=== PATIENT | male | born 1945 | race Hispanic/Latino ===

== ENCOUNTER 2018-10-22 08:19 | Day surgery (SDC) | payer OTHER ==
[2018-10-20 15:20] VITALS: BP 163/86
[2018-10-20 15:32] LABS: BASOPHILS % (AUTO) 0.9 % (0.0-5.0); EOSINOPHILS % (AUTO) 3.3 % (0.0-8.0); HEMATOCRIT 49.7 % (42-54); LYMPHOCYTES % (AUTO) 29.2 % (21.0-51.0); MEAN CORPUSCULAR HEMOGLOBIN 28.1 pg (27.0-33.0); MEAN CORPUSCULAR HGB CONC 33.8 g/dL (32.0-36.0); MEAN CORPUSCULAR VOLUME 83.2 fL (79-99); MONOCYTES % (AUTO) 10.7 % (3.0-13.0); NEUTROPHILS % (AUTO) 55.9 % (40.0-77.0); PLATELET COUNT (AUTO) 330 K/uL (130-400); RED BLOOD CELL COUNT(AUTO) 5.97 MIL/uL (4.50-6.20); RED CELL DISTRIBUTION WIDTH 13.9 % (11.0-15.5); WHITE BLOOD COUNT (AUTO) 9.5 K/uL (4.8-10.8)
[2018-10-20 15:50] LABS: INR 0.99 (0.85-1.15); PARTIAL THROMBOPLASTIN TIME 30.7 SEC (26.3-35.5); PROTHROMBIN TIME 10.4 SEC (9.6-11.6)
[2018-10-20 15:59] LABS: CREATININE 0.9 mg/dL (0.5-1.5)
[2018-10-20 17:19] LABS: BILIRUBIN,URINE NEGATIVE (NEGATIVE); COLOR,URINE YELLOW (YELLOW); GLUCOSE, URINE (UA) NEGATIVE (NEGATIVE); KETONES,URINE NEGATIVE (NEGATIVE); LEUKOCYTE ESTERASE ,URINE MODERATE (NEGATIVE); NITRATE,URINE POSITIVE (NEGATIVE); OCCULT BLOOD,URINE MODERATE (NEGATIVE); PH,URINE 5.5 (5.0-8.0); PROTEIN,URINE NEGATIVE (NEGATIVE); UROBILINOGEN,URINE 0.2 mg/dL (0.2-1.0)
[2018-10-20 17:20] LABS: APPEARANCE,URINE CLOUDY (CLEAR); RBC,URINE None Seen /HPF (0-1)
[2018-10-20 17:21] LABS: BACTERIA,URINE Moderate /HPF (None Seen); SQUAMOUS EPITHELIAL CELL,UR None Seen /HPF (0-2); WBC,URINE >100 /HPF (0-1)
--- NOTE | 2018-10-21 10:25 | NUR ---
UA REPORTED AND FAXED ABNORMAL UA TO DR. VIRGEN LEUNG. SHE WILL INFORM HIM.
--- NOTE | 2018-10-21 11:25 | NUR ---
UA PER DR. NEW NO ORDERS RECEIVED. PROCEED WITH PLANNED PROCEDURE.
[~2018-10-22] VITALS: Ht 177.8 cm; Wt 109.6 kg
[2018-10-22] VITALS (9 sets, daily range): BP systolic 134–167; BP diastolic 72–94
[~2018-10-22 08:19] MED LIST: ALFU10TA18 PO; CEPH500C2 PO; FINA5TAB41 PO; LOSA50TA64 PO; METO-391 PO; PHARMACY COMMUNICATION MISC SCH; ROSU20TA30 PO; SODIUM CHLORIDE 0.9% 500ML 500 ML IV SCH
[2018-10-22] MEDS ORDERED: SODIUM CHLORIDE 0.9% 1000ML 1,000 ML IV ONE (08:56)
[2018-10-22] MEDS ORDERED: IOHEXOL-350 50ML VIAL IV ONE (09:59)
[2018-10-22] MEDS ORDERED: IOHEXOL-350 75 ML VIAL IV ONE (09:59)
[2018-10-22] MEDS ORDERED: LIDOCAINE HCL 2% 20ML ONE (09:59)
[2018-10-22] MEDS ORDERED: HYDRALAZINE HCL 20 MG/ML VIAL ONE (10:31)
--- NOTE | 2018-10-22 14:00 | NUR ---
REPORT RECEIVED FROM SHERRILL PATEL, CARE RENDERED OVER. PT READY FOR DISCHARGED, JUST WAITING FOR APPOINTMENT.
--- NOTE | 2018-10-22 14:30 | NUR ---
PT DISCHARGED HOME, TOLERATING FLUIDS WELL, AMBULATING WELL. DENIES ANY SEVERE PAIN, NAUSEA OR DIZZINESS. DRESSING TO RIGHT GROIN REMAINS SOFT, DRY, CLEAN AND INTACT. PT SWITCHED TO LEG BAG PRIOR TO LEAVING, VOIDING WELL, CLEAR YELLOW URINE. REPORTED TO PT THAT WE WOULD CALL HIM WITH DATE OF SURGERY.
--- NOTE | 2018-10-22 17:15 | NUR ---
PT CALLED AND NOTIFIED OF DATE OF SURGERY AND PRE-OP APPOINTMENT EXPLAINED IN THE DISCHARGE INSTRUCTIONS.
== END 2018-10-22 14:30 | disposition home or self-care (01) ==
LOC: DAH 08:19
PROVIDERS: ATTEND Internal Medicine Cardiovascular Disease
DX: I25.118 Atherosclerotic heart disease of native coronary artery with other forms of angina pectoris (principal); E78.5 Hyperlipidemia, unspecified; Z79.899 Other long term (current) drug therapy; Z98.890 Other specified postprocedural states; E11.9 Type 2 diabetes mellitus without complications; Z68.34 Body mass index [BMI] 34.0-34.9, adult; I10 Essential (primary) hypertension; Z79.01 Long term (current) use of anticoagulants; K21.9 Gastro-esophageal reflux disease without esophagitis
CPT/HCPCS: 36415; 71045; 80048; 81001; 85025; 85610; 85730; 93005; 93458; A4606; C1760; C1894; J0360; J1644; J3490; J7030; Q9967 ×2

== ENCOUNTER 2018-11-02 06:47 | Inpatient (IN) | payer OTHER | END 2018-11-06 15:55 | disposition home or self-care (01) | LOC: DAHIP 06:47 → 2AH 11-04 21:14 → 2CV 13:22 → 2CH 11-03 10:22 | PROC: 021 Heart and Great Vessels, Bypass (ICD-10-PCS; principal; 2018-11-02 10:54) | PROC: 06BQ3ZZ Excision of Left Saphenous Vein, Percutaneous Approach (ICD-10-PCS; 2018-11-02 10:54) | DX: I25.10 Atherosclerotic heart disease of native coronary artery without angina pectoris (principal); I10 Essential (primary) hypertension ==

== ENCOUNTER 2021-05-15 10:00 | Emergency (ER) | payer MEDICARE, OTHER ==
[~2021-05-15] VITALS: Ht 177.8 cm; Wt 101.6 kg
[~2021-05-15 10:00] MED LIST changes: -ALFU10TA18 PO; +ASPI-1197 PO; +ATOR40TA71 PO; +CEPH500B PO; -CEPH500C2 PO; -FINA5TAB41 PO; +LOSA50TA2 PO; -LOSA50TA64 PO; -METO-391 PO; +METO50TA18 PO; +PANT40TA PO; -PHARMACY COMMUNICATION MISC SCH; -ROSU20TA30 PO; -SODIUM CHLORIDE 0.9% 500ML 500 ML IV SCH
[2021-05-15 10:48] LABS: BASOPHILS % (AUTO) 0.5 % (0.0-5.0); EOSINOPHILS % (AUTO) 2.2 % (0.0-8.0); HEMATOCRIT 52.4 % (42-54); LYMPHOCYTES % (AUTO) 21.1 % (21.0-51.0); MEAN CORPUSCULAR HGB CONC 31.7 g/dL (32.0-36.0); MONOCYTES % (AUTO) 10.4 % (3.0-13.0); NEUTROPHILS % (AUTO) 65.5 % (40.0-77.0); PLATELET COUNT (AUTO) 296 K/uL (130-400); RED BLOOD CELL COUNT(AUTO) 6.39 MIL/uL (4.50-6.20); RED CELL DISTRIBUTION WIDTH 19.2 % (11.0-15.5); WHITE BLOOD COUNT (AUTO) 11.7 K/uL (4.8-10.8)
[2021-05-15 11:07] LABS: ALBUMIN 4.1 g/dL (3.5-5.0); BILIRUBIN,TOTAL 0.6 mg/dL (0.2-1.0); MAGNESIUM 2.2 mg/dL (1.80-2.40); POTASSIUM 4.4 mmol/L (3.5-5.1); TOTAL PROTEIN, SERUM 7.6 g/dL (6.0-8.3)
[2021-05-15 11:19] LABS: B-TYPE NATRIURETIC PEPTIDE 28 pg/mL (0-100)
[2021-05-15] MEDS ORDERED: 0.9%NACL 1000ML 1,000 ML IV ONE (12:30)
[2021-05-15 12:53] VITALS: BP 128/82
== END 2021-05-15 13:14 | disposition home or self-care (01) ==
LOC: EDH 10:00
DX: I49.1 Atrial premature depolarization (principal); R00.2 Palpitations; E78.00 Pure hypercholesterolemia, unspecified; I10 Essential (primary) hypertension; I25.10 Atherosclerotic heart disease of native coronary artery without angina pectoris; Z79.82 Long term (current) use of aspirin; Z79.899 Other long term (current) drug therapy; Z87.442 Personal history of urinary calculi; Z90.79 Acquired absence of other genital organ(s)
CPT/HCPCS: 36415; 71045; 80053; 82330; 82550; 83735; 83880; 84484; 85025; 93005

== ENCOUNTER 2023-11-12 16:16 | Emergency (ER) | payer OTHER ==
[~2023-11-12] VITALS: Ht 177.8 cm; Wt 101.2 kg
[~2023-11-12 16:16] MED LIST changes: +AEC81 PO; +ESOM40CA66 PO; +LOSA-418 PO; -LOSA50TA2 PO; +METO-408 PO; +ONDA-104 PO; +ROSU40TA70 PO
[2023-11-12 17:12] LABS: BASOPHILS # (AUTO) 0.04 K/uL (0.00-0.20); BASOPHILS % (AUTO) 0.3 % (0.0-5.0); EOSINOPHILS # (AUTO) 0.02 K/uL (0.00-0.70); EOSINOPHILS % (AUTO) 0.1 % (0.0-8.0); HEMATOCRIT 59.8 % (42-54); IMMATURE GRANULOCYTE ABSOLUTE 0.06 K/uL (0-1); LYMPHOCYTES # (AUTO) 1.8 K/uL (1.0-4.8); LYMPHOCYTES % (AUTO) 11.6 % (21.0-51.0); MEAN CORPUSCULAR HEMOGLOBIN 28.9 pg (27.0-33.0); MEAN CORPUSCULAR HGB CONC 32.9 g/dL (32.0-36.0); MEAN CORPUSCULAR VOLUME 87.8 fL (79-99); MONOCYTES # (AUTO) 1.4 K/uL (0.1-1.0); MONOCYTES % (AUTO) 8.9 % (3.0-13.0); NEUTROPHILS # (AUTO) 12.4 K/uL (1.8-7.7); NEUTROPHILS % (AUTO) 78.7 % (40.0-77.0); PLATELET COUNT (AUTO) 347 K/uL (130-400); RED BLOOD CELL COUNT(AUTO) 6.81 MIL/uL (4.50-6.20); RED CELL DISTRIBUTION WIDTH 15.5 % (11.0-15.5); WHITE BLOOD COUNT (AUTO) 15.7 K/uL (4.8-10.8)
[2023-11-12 17:38] LABS: B-TYPE NATRIURETIC PEPTIDE 10 pg/mL (0-100)
[2023-11-12 17:39] LABS: ALBUMIN 4.7 g/dL (3.5-5.0); BILIRUBIN,TOTAL 0.9 mg/dL (0.2-1.0); CREATININE 1.4 mg/dL (0.5-1.3); TOTAL PROTEIN, SERUM 8.6 g/dL (6.0-8.3)
[2023-11-13] MEDS ORDERED: IOHEXOL 350 MG/ML 100ML INFUS..BTL IV ONE (01:11)
[2023-11-13 01:12] VITALS: BP 161/95; PULSE 98; RESP 16; O2SAT 99
[2023-11-13] MEDS: ONDANSETRON 4MG INJ IVP ONE (01:34)
[2023-11-13] MEDS: 0.9%NACL 1000ML 1,000 ML IV ONE (01:34)
[2023-11-13 01:39] LABS: APPEARANCE,URINE CLOUDY (CLEAR); BILIRUBIN,URINE 0.5 mg/dL (NEGATIVE); COLOR,URINE YELLOW (YELLOW); GLUCOSE, URINE (UA) 30 mg/dL (NEGATIVE); KETONES,URINE 5 mg/dL (NEGATIVE); LEUKOCYTE ESTERASE ,URINE NEGATIVE Leu/uL (NEGATIVE); NITRATE,URINE NEGATIVE (NEGATIVE); OCCULT BLOOD,URINE SMALL (NEGATIVE); PH,URINE 5.5 (5.0-8.0); PROTEIN,URINE 100 mg/dL (NEGATIVE); UROBILINOGEN,URINE 0.2 mg/dL (0.2-1.0)
[2023-11-13] MEDS: ONDANSETRON 4MG INJ ONE (01:41)
[2023-11-13 01:46] LABS: ADD UA MICROSCOPIC YES
[2023-11-13 01:55] LABS: RBC,URINE 0-1 /HPF (0-1)
[2023-11-13 02:02] LABS: BACTERIA,URINE Rare /HPF (None Seen); SQUAMOUS EPITHELIAL CELL,UR Few /HPF (0-2); WBC,URINE 0-1 /HPF (0-1)
[2023-11-13 02:03] LABS: FINE GRANULAR CASTS,URINE 0-2 /LPF (None Seen)
[2023-11-13 02:05] LABS: HYALINE CASTS, URINE 0-1 /LPF (0-1 /LPF)
[2023-11-13] MEDS ORDERED: ONDA-243 PO (02:10)
[2023-11-13] MEDS ORDERED: DICY20TA2 PO (02:10)
[2023-11-13] MEDS: MAG/ALUM/SIMETH 30 ML UDCUP PO ONE (03:18)
[2023-11-13] MEDS: DICYCLOMINE HCL 10 MG/5 ML ML PO ONE (03:18)
== END 2023-11-13 04:31 | disposition home or self-care (01) ==
LOC: EDH 16:16
DX: K52.9 Noninfective gastroenteritis and colitis, unspecified (principal); I25.10 Atherosclerotic heart disease of native coronary artery without angina pectoris; I10 Essential (primary) hypertension; E78.00 Pure hypercholesterolemia, unspecified; Z79.82 Long term (current) use of aspirin; Z79.899 Other long term (current) drug therapy; Z90.79 Acquired absence of other genital organ(s)
CPT/HCPCS: 99285; 74177; 71045; 84484; 80053; 83880; 83690; 85025; 81001; 36415; 93005; 96374; J2405; Q9967

== ENCOUNTER 2024-07-13 17:24 | Emergency (ER) | payer OTHER ==
[~2024-07-13] VITALS: Ht 177.8 cm; Wt 93.0 kg
[~2024-07-13 17:24] MED LIST changes: +DICY20TA2 PO; +ONDA-243 PO; -ROSU40TA70 PO; +ROSU40TA88 PO
--- NOTE | 2024-07-13 17:53 | ERN ---
ED Note History of Present Illness Stated Complaint: PALPATATIONS Chief Complaint: Palpitations Time Seen by MD: 17:35 Time Seen by Midlevel: 17:35 Dictation: 79-year-old male who presents to the emergency department due to report of having intermittent episodes of palpitations that began at 6:00 a.m. in the morning. He states that initially the lasted approximately 5-10 minutes. However, as a 1 hour ago they were lasting as long as 30 minutes with the last 1 being 10 minutes ago. Patient states that he was sitting down when this last episode occurred. He states that he does have a history of coronary artery dise ase with a bypass. At this time, he denies having any chest pain, chest pressure or shortness of breath. Patient states that he has been having several episodes of diarrhea for the past 6 months and does not know whether or not this might be related to it. Upon initial evaluation, the patient presents in no acute distress. Allergies: Coded Allergies: No Known Allergies (Unverified Allergy, Unknown, 10/22/18) No Known Drug Allergies (Unverified Allergy, Unknown, 10/04/22) Emergency Care SEAM SEWER: None Home Meds Active Scripts Ondansetron (Ondansetron Odt) 4 Mg Tab.rapdis, 4 MG PO Q4H PRN for NAUSEA, #20 TAB Prov:AUDELIA THORPE WOOL PULLER 11/13/23 Dicyclomine HCl (Bentyl) 20 Mg Tab, 20 MG PO TID PRN for ABDOMINAL PAIN, #15 TAB Prov:ROSANNE THORPELUPE WOOL PULLER 11/13/23 Ondansetron HCl (Ondansetron HCl) 4 Mg Tablet, 4 MG PO Q6HPRN PRN for nausea/vomiting, #20 TAB 0 Refills Prov:XIOMARA VILLARREAL AGPCNP 04/22/22 Pantoprazole Sodium (Protonix) 40 Mg Tablet.dr, 40 MG PO BID, #60 TAB 0 Refills Prov:XIOMARA VILLARREAL AGPCNP 04/22/22 Cephalexin Monohydrate (Keflex) 500 Mg Cap, 500 MG PO BID for 3 Days, #6 CAP 0 Refills Prov:YAYA CLEMENT ACNP 12/06/20 Pantoprazole Sodium (Protonix) 40 Mg Tablet.dr, 40 MG PO BID for 30 Days, #60 TAB 1 Refill Prov:YAYA CLEMENT ACNP 12/06/20 Losartan Potassium (Cozaar) 50 Mg Tablet, 50 MG PO DAILY for 30 Days, #30 TAB Prov:DOUGLAS REYES Jr., MD 11/06/18 Reported Medications Aspirin (ASPIRIN 81 MG ECTAB) 81 Mg Ectab, 81 MG PO DAILY, TAB.EC 04/20/22 Rosuvastatin Calcium (Rosuvastatin Calcium) 40 Mg Tablet, 40 MG PO DAILY, TAB 04/20/22 Metoprolol Succinate (Metoprolol Succinate) 25 Mg Tab.er.24h, 25 MG PO DAILY, TAB 04/20/22 Esomeprazole Magnesium (Esomeprazole Magnesium) 40 Mg Capsule.dr, 40 MG PO DAILY, CAP 04/20/22 Aspirin (Aspirin) 81 Mg Tab.chew, 81 MG PO DAILY, TAB.CHEW 12/05/20 Atorvastatin Calcium (Atorvastatin Calcium) 40 Mg Tablet, 40 MG PO DAILY, TAB 12/05/20 Metoprolol Tartrate (Metoprolol Tartrate) 50 Mg Tablet, 50 MG PO DAILY, TAB 12/05/20 Past Medical History Past Medical History: High Cholesterol, Hypertension Additional Past Medical Hx: H.PYLORI, GI BLEED, KIDNEY STONES, 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 Initial Vital Sign VS Vital Signs Date Time Temp Pulse Resp B/P (MAP) Pulse Ox O2 Delivery O2 Flow Rate FiO2 07/13/24 17:35 98.8 78 20 168/92 99 Room Air 0 07/13/24 18:03 21 Physical Exam Dictation General: awake, alert, NAD Head/Face: Normocephalic, atraumatic Eyes: PERRL, EOMI ENT: Oral mucosa dry Neck: Trachea midline, supple Cardiovascular: RRR, no edema Respiratory: Symmetrical, non-labored Abdomen: Soft, non-tender, non-distended, no guarding. Skin: Warm, dry, good turgor, no rash MS/Extremity: Pulses equal, no cyanosis, neurovascular intact, FROM Neuro: COAx4, GCS 15, steady gait, Psych: Normal behavior, mood, and affect normal Results (Laboratory/Radiology) Laboratory/Radiology Laboratory Tests Test 07/13/24 17:52 07/13/24 18:14 07/13/24 20:07 White Blood Count 9.0 K/uL (4.8-10.8) Red Blood Count 6.09 MIL/uL (4.50-6.20) Hemoglobin 17.8 g/dL (14.0-18.0) Hematocrit 53.4 % (42-54) Mean Corpuscular Volume 87.7 fL (79-99) Mean Corpuscular Hemoglobin 29.2 pg (27.0-33.0) Mean Corpuscular Hemoglobin Concent 33.3 g/dL (32.0-36.0) Red Cell Distribution Width 14.6 % (11.0-15.5) Platelet Count 341 K/uL (130-400) Mean Platelet Volume 10.7 fL (7.5-10.5) H Immature Granulocyte % (Auto) 0.2 % (0-1) Neutrophils (%) (Auto) 64.8 % (40.0-77.0) Lymphocytes (%) (Auto) 22.1 % (21.0-51.0) Monocytes (%) (Auto) 9.7 % (3.0-13.0) Eosinophils (%) (Auto) 2.8 % (0.0-8.0) Basophils (%) (Auto) 0.4 % (0.0-5.0) Neutrophils # (Auto) 5.8 K/uL (1.8-7.7) Lymphocytes # (Auto) 2.0 K/uL (1.0-4.8) Monocytes # (Auto) 0.9 K/uL (0.1-1.0) Eosinophils # (Auto) 0.25 K/uL (0.00-0.70) Basophils # (Auto) 0.04 K/uL (0.00-0.20) Absolute Immature Granulocyte (auto 0.02 K/uL (0-1) Nucleated Red Blood Cells 0.0 % (0.0-0.19) Sodium Level 143 mmol/L (136-145) Potassium Level 3.3 mmol/L (3.5-5.1) L Chloride Level 104 mmol/L (101-111) Carbon Dioxide Level 29 mmol/L (21-32) Blood Urea Nitrogen 18 mg/dL (7-18) Creatinine 1.2 mg/dL (0.5-1.3) Glomerular Filtration Rate Calc 62 mL/min (>90) Random Glucose 92 mg/dL (70-105) Total Calcium 9.2 mg/dL (8.5-10.1) Magnesium Level 2.00 mg/dL (1.80-2.40) Total Creatine Kinase 155 U/L (21-232) # B-Type Natriuretic Peptide 51 pg/mL (0-100) Troponin I < 0.05 ng/mL (0.00-0.05) Urine Color YELLOW (YELLOW) Urine Appearance CLEAR (CLEAR) Urine pH 5.5 (5.0-8.0) Urine Specific [place] 1.025 (1.001-1.031) Urine Protein 10 mg/dL (NEGATIVE) H Urine Glucose (UA) NEGATIVE mg/dL (NEGATIVE) Urine Ketones NEGATIVE mg/dL (NEGATIVE) Urine Occult Blood NEGATIVE (NEGATIVE) Urine Nitrate NEGATIVE (NEGATIVE) Urine Bilirubin NEGATIVE mg/dL (NEGATIVE) Urine Urobilinogen 0.2 mg/dL (0.2-1.0) Urine Leukocyte Esterase NEGATIVE Geri/uL Urine RBC 2-5 /HPF (0-1) H Urine WBC 2-5 /HPF (0-1) H Urine Squamous Epithelial Cells RARE /HPF (0-2) Urine Bacteria None /HPF (None Seen) Labs Reviewed?: Yes EKG Comment: EKG done 07/13/2024 at 5:37 p.m. Ventricular rate 77 beats per minute ID [id number] MS QRS 100 MS QT 407 MS No STEMI. ED Course ED Course Orders Procedure Category Date Status Time Vital Signs Per CPOE 07/13/24 Transmitted Routine 17:35 B-Type Natriuretic LAB 07/13/24 Complete Peptide 17:35 Chest 1vw RAD 07/13/24 Resulted 17:35 12 Lead Ekg Tracing- EKG 07/13/24 Logged Technical 17:35 Oxygen By Nc/Pulse Ox CPOE 07/13/24 Transmitted 17:35 Maintain Iv CPOE 07/13/24 Transmitted 17:35 Iv Insertion CPOE 07/13/24 Transmitted 17:35 Cardiac Monitoring CPOE 07/13/24 Transmitted 17:35 Pulse Oximetry With CPOE 07/13/24 Transmitted Vs And Prn 17:35 Cbc With Differential LAB 07/13/24 Complete 17:35 Activity: Br W/Brp CPOE 07/13/24 Transmitted With Assist 17:35 Creatine Kinase, Total LAB 07/13/24 Complete 17:35 Urinalysis Profile LAB 07/13/24 Complete 17:35 Troponin Poc Order LAB 07/13/24 Complete Only 17:35 Bedside Troponin-I LAB.ER 07/13/24 In Process (Poc) 17:35 Basic Metabolic Panel LAB 07/13/24 Complete 17:35 Magnesium LAB 07/13/24 Complete 17:52 Potassium Bicarb/Cit PHA 07/13/24 Complete Ac 25meq (K-Lyte Ta 19:30 Current Medications Medications (Trade) Dose Ordered Sig/Jina Route PRN Reason Start Time Stop Time Status Last Admin Dose Admin Potassium Bicarbonate (K-Lyte Tablet Eff 25 Meq Tablet.eff) 25 meq ONCE ONCE PO 07/13/24 19:30 07/13/24 19:31 DC 07/13/24 19:22 Vital Signs Date Time Temp Pulse Resp B/P (MAP) Pulse Ox O2 Delivery O2 Flow Rate FiO2 07/13/24 19:15 98.8 70 18 132/74 97 Room Air* 0 21 07/13/24 18:03 78 18 144/78 98 Room Air* 0 21 07/13/24 17:35 98.8 78 20 168/92 99 Room Air 0 HEART Score Response (Comments) Value History: Low suspicion (0) 0 EKG: Normal 0 Age: > 65yrs (+2) 2 Risk Factors: 1-2 risk factors (+1) 1 Initial Troponin: Normal limit (0) 0 HEART Score Risk: Low Risk for MACE (1-3) Total 3 Medical Decision Making MDM MDM: Differential diagnosis: Palpitations, electrolyte imbalance, non STEMI. Rationale: Tests considered and ordered secondary to shared decision making include: Previous outside records reviewed: Old ER visits. Risk of complication and/or morbidity or mortality of patient management: None Medications-Per medication reconciliation Need for hospitalization: Patient does not meet criteria for hospitalization. Need for emergency major/minor surgery: No There are no social concerns with this patient. Prescription drug management Prescriptions will include symptomatic care Patient's prior external medical records from other ER visits were reviewed by me as indicated. Prior testing and results from previous visits were reviewed. Prior tests were taken into account with medical decision making and resource utilization, independent historian/historians were used to obtain complete medical history. I independently interpreted the test that were performed, results were reviewed by me and considered findings on radiology if ordered. Medical management and examination interpretation discussions were had by me with other qualified healthcare professionals as indicated for the patient's care. DX & DISP Disposition: Discharge Departure Impression: Primary Impression: Palpitations Additional Impression: Acute hypokalemia Condition: Stable Referrals: ANGELLA MALAVE MD (PCP) Time of Disposition: 20:56 DOUGLAS ERAZO Jul 13, 2024 17:53
--- NOTE | 2024-07-13 18:02 | HMCIMG ---
PORTABLE CHEST RADIOGRAPH INDICATION: CHEST PAIN COMPARISON: 11/12/2023 FINDINGS: Median sternotomy wires are in appropriate alignment. Heart size is normal. Mild calcific plaque is present along the aortic arch junior. The pulmonary vascularity and shruthi appear normal. No abnormal pulmonary parenchymal opacity or consolidation identified. No significant pleural effusion noted. No pneumothorax detected. IMPRESSION: No radiographic evidence for any acute cardiopulmonary process.
[2024-07-13 18:05] LABS: BASOPHILS # (AUTO) 0.04 K/uL (0.00-0.20); BASOPHILS % (AUTO) 0.4 % (0.0-5.0); EOSINOPHILS # (AUTO) 0.25 K/uL (0.00-0.70); EOSINOPHILS % (AUTO) 2.8 % (0.0-8.0); HEMATOCRIT 53.4 % (42-54); IMMATURE GRANULOCYTE ABSOLUTE 0.02 K/uL (0-1); LYMPHOCYTES % (AUTO) 22.1 % (21.0-51.0); MEAN CORPUSCULAR HEMOGLOBIN 29.2 pg (27.0-33.0); MEAN CORPUSCULAR HGB CONC 33.3 g/dL (32.0-36.0); MEAN CORPUSCULAR VOLUME 87.7 fL (79-99); MONOCYTES # (AUTO) 0.9 K/uL (0.1-1.0); MONOCYTES % (AUTO) 9.7 % (3.0-13.0); NEUTROPHILS # (AUTO) 5.8 K/uL (1.8-7.7); NEUTROPHILS % (AUTO) 64.8 % (40.0-77.0); PLATELET COUNT (AUTO) 341 K/uL (130-400); RED BLOOD CELL COUNT(AUTO) 6.09 MIL/uL (4.50-6.20); RED CELL DISTRIBUTION WIDTH 14.6 % (11.0-15.5)
[2024-07-13 18:30] LABS: B-TYPE NATRIURETIC PEPTIDE 51 pg/mL (0-100)
[2024-07-13 18:40] LABS: CREATININE 1.2 mg/dL (0.5-1.3); POTASSIUM 3.3 mmol/L (3.5-5.1)
[2024-07-13] MEDS: PoTASSium BIcarbonate/CIT AC 25 MEQ TABLET.EFF PO ONE (19:22)
[2024-07-13 20:34] LABS: APPEARANCE,URINE CLEAR (CLEAR); BILIRUBIN,URINE NEGATIVE (NEGATIVE); COLOR,URINE YELLOW (YELLOW); GLUCOSE, URINE (UA) NEGATIVE (NEGATIVE); KETONES,URINE NEGATIVE (NEGATIVE); LEUKOCYTE ESTERASE ,URINE NEGATIVE Leu/uL (NEGATIVE); NITRATE,URINE NEGATIVE (NEGATIVE); OCCULT BLOOD,URINE NEGATIVE (NEGATIVE); PH,URINE 5.5 (5.0-8.0); PROTEIN,URINE 10 mg/dL (NEGATIVE); UROBILINOGEN,URINE 0.2 mg/dL (0.2-1.0)
[2024-07-13 20:37] LABS: ADD UA MICROSCOPIC YES
[2024-07-13 20:38] LABS: MUCUS,URINE RARE LPF (None Seen); SQUAMOUS EPITHELIAL CELL,UR RARE /HPF (0-2)
[2024-07-13 21:10] VITALS: BP 133/75; PULSE 78; RESP 18; TEMP 98.5; O2SAT 96
--- NOTE | 2024-07-14 05:11 | EKG ---
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
== END 2024-07-13 21:22 | disposition home or self-care (01) ==
LOC: EDH 17:24
DX: R00.2 Palpitations (principal); E87.6 Hypokalemia; E78.00 Pure hypercholesterolemia, unspecified; I10 Essential (primary) hypertension; Z79.82 Long term (current) use of aspirin; Z79.899 Other long term (current) drug therapy; Z90.79 Acquired absence of other genital organ(s); Z95.1 Presence of aortocoronary bypass graft
CPT/HCPCS: 36415; 71045; 80048; 81001; 82550; 83735; 83880; 84484; 85025; 93005; 99285